=== PATIENT | male | born 1990 | race Caucasian/White ===

== ENCOUNTER 2017-05-29 10:34 | Emergency (ER) | payer BC, OTHER ==
[2017-05-29] MEDS ORDERED: Ketorolac INJ* 60 MG/2 ML VIAL IM ONE (14:23)
--- NOTE | 2017-05-29 14:27 | ED ---
Back Pain - History of Current Complaint Chief Complaint: EDBackInjuryPain Stated Complaint: BACK PAIN Time Seen by Provider: 05/29/17 11:46 Pain Intensity: 5 - Allergies/Home Medications Allergies/Adverse Reactions: Allergies Allergy/AdvReac Type Severity Reaction Status Date / Time No Known Allergies Allergy Verified 05/29/17 10:50 PMH/Surg Hx/FS Hx/Imm Hx - Immunization History Immunizations Up to Date: Yes Infectious Disease History: No Infectious Disease History: Denies: Traveled Outside the [place] in Last 30 Days - Social History Alcohol Use: Occasionally Substance Use Type: Reports: None Smoking Status (MU): Never Smoked Tobacco Physical Exam Vital Signs On Initial Exam: Initial Vitals Temp Pulse Resp BP Pulse Ox 97.4 F 82 17 155/83 98 05/29/17 10:46 05/29/17 10:46 05/29/17 10:46 05/29/17 10:46 05/29/17 10:46 - [place] Coma Scale Coma Scale Total: 15 Diagnostics - Vital Signs Vital Signs Temp Pulse Resp BP Pulse Ox 05/29/17 10:46 97.4 F 82 17 155/83 98 - Laboratory Lab Statement: Any lab studies that have been ordered have been reviewed, and results considered in the medical decision making process. Back Pain Course/Dx - Diagnoses Provider Diagnoses: Lumbosacral strain Discharge - Discharge Plan Condition: Stable Disposition: HOME Patient Education Materials: Low Back Strain (ED), Lower Back Exercises (ED) Forms: *Work Release Referrals: Leeann EM,Anshul Hudson [Primary Care Provider] - Additional Instructions: Continue taking ibuprofen 600mg every 6-8 hours with food, as needed for the next couple of days/while symptoms last. Do not take any today as you received your daily dose for today in the ED. Take muscle relaxer at bedtime. Continue heating pads and massage. Gently stretch once symptoms begin to improve. Avoid any lifting and use pain as your guide for physical activity. Rest. You may also try tylenol with ibuprofen and/or topical agents such as salonpas or lidoderm patches sold over the counter.
[2017-05-29 14:40] VITALS: BP 146/71
== END 2017-05-29 14:40 | disposition home or self-care (01) ==
LOC: ED 10:34
DX: S39.012A Strain of muscle, fascia and tendon of lower back, initial encounter (principal); X58.XXXA Exposure to other specified factors, initial encounter; Y92.9 Unspecified place or not applicable
CPT/HCPCS: 96372; 99282; J1885